=== PATIENT | male | born 1960 | race Caucasian/White ===

== ENCOUNTER 2017-03-04 09:54 | Emergency (ER) | payer OTHER ==
[~2017-03-04] VITALS: Ht 180.3 cm; Wt 100.7 kg
[~2017-03-04 09:54] MED LIST: ALEVE220 MG PO; COLD & FLU REL180 ML PO
[2017-03-04] MEDS ORDERED: REQUIP2 MG PO (10:06)
[2017-03-04] MEDS ORDERED: WELLBUTRIN XL150 MG PO (10:06)
[2017-03-04] MEDS ORDERED: ZESTRIL10 MG PO (10:06)
[2017-03-04] MEDS ORDERED: TYLENOL WITH C1 EACH PO (13:03)
[2017-03-04] MEDS ORDERED: NAPROXEN500 MG PO (13:03)
== END 2017-03-04 13:09 | disposition home or self-care (01) ==
LOC: ED 09:54
DX: S92.511A Displaced fracture of proximal phalanx of right lesser toe(s), initial encounter for closed fracture (principal); Z91.038 Other insect allergy status; Z79.899 Other long term (current) drug therapy; W22.01XA Walked into wall, initial encounter
CPT/HCPCS: 73630; 99283

== ENCOUNTER 2017-09-18 23:42 | Emergency (ER) | payer MEDICARE, OTHER ==
[~2017-09-18] VITALS: Ht 180.3 cm; Wt 100.7 kg
[~2017-09-18 23:42] MED LIST changes: +NAPROXEN500 MG PO; +REQUIP2 MG PO; +TYLENOL WITH C1 EACH PO; +WELLBUTRIN XL150 MG PO; +ZESTRIL10 MG PO
[2017-09-19] MEDS ORDERED: VENTOLIN HFA18 GM INH (01:37)
[2017-09-19] MEDS ORDERED: REMERON15 MG PO (01:38)
[2017-09-19] MEDS ORDERED: HYDROCHLOROTH12.5 M1 PO (01:39)
[2017-09-19] MEDS ORDERED: LISINOPRIL20 MG PO (01:40)
[2017-09-19] MEDS ORDERED: ESCITALOPRAM OX10 MG PO (01:41)
[2017-09-19] MEDS ORDERED: PRAZOSIN HCL1 MG PO (01:41)
--- NOTE | 2017-09-19 21:07 | EKG ---
[facility] [address] [facility] [place] [address] Signed Normal sinus rhythm Possible Left atrial enlargement Borderline ECG No previous ECGs available Confirmed by MERRY MARK MD ([id number]) on 09/19/2017 9:07:07 PM Electronically Signed By: MERRY MARK MD 09/19/17 2107 PATIENT NAME: ANAHY BRYANT Electrocardiogram DATE OF : 60 PHYSICIAN: MERRY MARK MD REPORT #: [id number] REPORT IS CONFIDENTIAL AND NOT TO BE RELEASED WITHOUT AUTHORIZATION
== END 2017-09-19 02:10 | disposition home or self-care (01) ==
LOC: ED 23:42
PROC: 0T9B70Z Drainage of Bladder with Drainage Device, Via Natural or Artificial Opening (ICD-10-PCS; principal; 2017-09-18)
DX: I95.2 Hypotension due to drugs (principal); T46.4X5A Adverse effect of angiotensin-converting-enzyme inhibitors, initial encounter; I10 Essential (primary) hypertension; J45.909 Unspecified asthma, uncomplicated; F17.200 Nicotine dependence, unspecified, uncomplicated; Z91.030 Bee allergy status; Z79.899 Other long term (current) drug therapy
CPT/HCPCS: 51701; 71045; 80053; 81001; 83605; 85025; 87040; 93005; 93010; 99283; J7030

== ENCOUNTER 2018-11-13 09:50 | Day surgery (SDC) | payer MEDICARE ==
[~2018-11-13] VITALS: Ht 180.3 cm; Wt 100.7 kg
--- NOTE | ~2018-11-13 | OR ---
[facility] [address] [facility] [place], [place] [address] Draft DATE OF OPERATION: 11/13/2018 SURGEON: Sukhi Pickens MD PREOPERATIVE DIAGNOSIS: Obstructive sleep apnea with tonsillar hypertrophy. POSTOPERATIVE DIAGNOSIS: Obstructive sleep apnea with tonsillar hypertrophy. PROCEDURE PERFORMED: Tonsillectomy. ANESTHESIA: General orotracheal; PREKINDERGARTEN TEACHER, Parth. PREOP HISTORY: Anahy is a 58-year-old man with obstructive sleep apnea, enlarged tonsils, very obstructive, taken to the operating room for the above-mentioned procedures. OPERATIVE PROCEDURE AND FINDINGS: After informed consent, the patient was taken to the operating room, placed in the supine position where general orotracheal anesthesia was induced. The patient and procedure were verified. The patient was repositioned. McIvor mouth gag was placed into suspension. Headlight exam of the pharynx showed markedly hypertrophic obstructive tonsils. The left tonsil was grasped with a tenaculum, retracted medially and removed from its fossa with mucosal sparing incision with Coblation. Field was dry after the procedure. Same procedure on the right tonsil. Tonsils were sent to Pathology. Reinspection showed no bleeding points. The pharynx was suctioned clear of blood secretions. Mouth gag was removed. The patient was awakened, extubated, transported to recovery room in good condition. No complications. BLOOD LOSS: Minimal. SPECIMEN: To Pathology. DRAINS: No drains. PATIENT NAME: ANAHY BRYNAT OPERATIVE REPORT DATE OF : 60 REPORT #: [id number] PHYSICIAN: SUKHI PICKENS MD PCP: KATERYNA CELAYA REPORT IS CONFIDENTIAL AND NOT TO BE RELEASED WITHOUT AUTHORIZATION [address] [place], [place] [address] Draft Sukhi Pickens MD GC/CHANTEL /[id number] Copies: ~ PATIENT NAME: ANAHY BRYANT OPERATIVE REPORT DATE OF : 60 REPORT #: [id number] PHYSICIAN: SUKHI PICKENS MD PCP: KATERYNA CELAYA REPORT IS CONFIDENTIAL AND NOT TO BE RELEASED WITHOUT AUTHORIZATION
[~2018-11-13 09:50] MED LIST changes: +ESCITALOPRAM OX10 MG PO; +HYDROCHLOROTH12.5 M1 PO; +LISINOPRIL20 MG PO; +PRAZOSIN HCL1 MG PO; +REMERON15 MG PO; +VENTOLIN HFA18 GM INH
--- NOTE | 2018-11-13 12:18 | NUR ---
11/13/18 1218 Amira Díaz 1201 PATIENT ARRIVES TO PACU UNRESPONSIVE TO PAINFUL STIMULI, ORAL AIRWAY IN PLACE, ALSO REQUIRES MANUAL JAW THRUST. PRESTON ROSALES SUCTIONING PATIENT FOR COARSE UPPER AIRWAY SOUNDS, WHICH DO NOT CLEAR WITH SUCTION. 1205 PATIENT NO LONGER REQUIRES MANUAL JAW THRUST. CONTINUES TO BE UNRESPONSIVE TO PAIN. ORAL AIRWAY IN PLACE. CONTINUES TO HAVE COARSE UPPER AIRWAY LUNG SOUNDS. RESP EVEN AND UNLABORED. 1214 PATIENT RESPONDS TO REPEATED VERBAL STIMULI. FOLLOWS COMMANDS TO OPEN MOUTH, ORAL AIRWAY REMOVED. PATIENT FOLLOWS COMMANDS TO COUGH, COARSE UPPER AIRWAY SOUNDS IMPROVED. RESP EVEN AND UNLABORED. 1215 PATIENT COUGHING VERY HARD, ADVISED PATIENT TO TRY AND NOT COUGH SO HARD IT WILL CAUSE BLEEDING, BUT PATIENT DOES NOT FOLLOW COMMANDS. PATIENT REMOVES MASK, ROOM AIR SATS ARE GREATER THAN 90%.
--- NOTE | 2018-11-13 12:44 | NUR ---
(1235) PATIENT RETURNES TO DAY SURGERY WITH 0 PAIN OR NAUSEA. STATING THAT HE IS HUNGERY
--- NOTE | 2018-11-13 13:52 | NUR ---
PATIENT WOKE UP AND ATE SOME PUDDING AND DRANK WATER.
--- NOTE | 2018-11-13 15:21 | NUR ---
PATIENT UNABLE TO STAND WITHOUT BECOMING DIZZY. SAT PATIENT AT EDGE OF BED WITH RN ASSIST. PATIENT URINATED 300ML. ABLE TO EAT AND DRINK WITHOUT NAUSEA OR PAIN.
== END 2018-11-13 16:33 | disposition home or self-care (01) ==
LOC: DS 09:50 → OPS 09:50 → DS 11:45 → OPS 16:33
PROVIDERS: Otolaryngology
PROC: 0CBPXZZ Excision of Tonsils, External Approach (ICD-10-PCS; principal; 2018-11-13 11:45)
DX: J35.1 Hypertrophy of tonsils (principal); G47.33 Obstructive sleep apnea (adult) (pediatric); I10 Essential (primary) hypertension; K21.9 Gastro-esophageal reflux disease without esophagitis
CPT/HCPCS: 00170; J1100; J1885; J2405; J2704; J3010; J7120